=== PATIENT | female | born 1960 | race Caucasian/White ===

== ENCOUNTER 2020-10-26 08:27 | Outpatient (CLI) | payer BC | END 2020-10-26 08:28 | disposition home or self-care (01) | LOC: CSHCT 08:27 | PROVIDERS: ATTEND Family Medicine | DX: R10.32 Left lower quadrant pain (principal); K76.0 Fatty (change of) liver, not elsewhere classified | CPT/HCPCS: 74177 ==

== ENCOUNTER 2020-11-27 15:28 | Outpatient (CLI) | payer BC | END 2020-11-27 15:29 | disposition home or self-care (01) | LOC: CSHMRI 15:28 | PROVIDERS: ATTEND Family Medicine | DX: M54.16 Radiculopathy, lumbar region (principal); M47.816 Spondylosis without myelopathy or radiculopathy, lumbar region | CPT/HCPCS: 72148 ==